=== PATIENT | female | born 1945 | race Caucasian/White ===

== ENCOUNTER 2016-10-22 17:05 | Emergency (ER) | payer OTHER ==
[2016-10-22 17:12] VITALS: BP 139/84; PULSE 79; TEMP 98.1; BMI 22.8
--- NOTE | 2016-10-22 17:24 | PDOC ---
History of Present Illness - General History Source: Patient, Old Records Exam Limitations: No Limitations <Audrey Bourgeois - Last Filed: 10/22/16 18:05> - General History Source: Patient, Spouse Exam Limitations: No Limitations - History of Present Illness Initial Comments: 10/22/16 18:16 The patient is a 71 year old female, with a significant past medical history of hypertension, who presents to the emergency department with a wound to the right upper extremity. Eight days ago, the patient reports that she was outside walking her dog when the dog saw a squirrel and took off running, tripping the patient and dragging her on the sidewalk in the process. The patient reports that she sustained an abrasion on her right upper extremity as a result. The patient subsequently washed and cleaned the wound, applied bacitracin and covered it with a band aid. Yesterday, the patient began to notice that the wound appeared to be infected so she decided to visit the ED for evaluation. The patient denies fever or chills. The patients is at the bedside. Date of the last Tetanus is unknown. Allergies: Sulfa, Penicillins. Past Surgical History: None reported. Social History: Non smoker. Reports occasional alcohol consumption. Denies drug use. PCP: Dr. Jenni Small ([facility]) <Aisha Yan - Last Filed: 10/22/16 18:16> - General Chief Complaint: Wound Stated Complaint: RT FOREARM WOUND Time Seen by Provider: 10/22/16 17:20 Past History - Past Medical History Anemia: No Asthma: No Cardiac Disorders: No CVA: No COPD: No CHF: No Dementia: No Diabetes: No GI Disorders: No Disorders: No HTN: Yes Hypercholesterolemia: No Liver Disease: No Seizures: No Thyroid Disease: No - Surgical History Abdominal Surgery: No Appendectomy: No Cardiac Surgery: No Cholecystectomy: No Lung Surgery: No Neurologic Surgery: No Orthopedic Surgery: Yes (Right Knee Bakers Cyst) - Psycho/Social/Smoking Cessation Hx Anxiety: No Suicidal Ideation: No Smoking History: Never smoked Have you smoked in the past 12 months: No Information on smoking cessation initiated: No Hx Alcohol Use: (occasional) Drug/Substance Use Hx: No Substance Use Type: Alcohol Hx Substance Use Treatment: No <Audrey Bourgeois - Last Filed: 10/22/16 18:05> <Aisha Yan - Last Filed: 10/22/16 18:16> - Past Medical History Allergies/Adverse Reactions: Allergies Allergy/AdvReac Type Severity Reaction Status Date / Time Sulfa (Sulfonamide Allergy Intermediate Verified 10/22/16 17:06 Antibiotics) Penicillins Allergy Mild Verified 10/22/16 17:06 Home Medications: Ambulatory Orders Clindamycin [Cleocin -] 300 mg PO TID #21 capsule 10/22/16 Lisinopril [Prinivil] 10 mg PO DAILY 10/22/16 Review of Systems - Review of Systems Able to Perform ROS?: Yes Comments:: 10/22/16 17:58 GENERAL/CONSTITUTIONAL: No fever or chills. No weakness. HEAD, EYES, EARS, NOSE AND THROAT: No change in vision. No ear pain or discharge. No sore throat. CARDIOVASCULAR: No chest pain or shortness of breath. RESPIRATORY: No cough, wheezing, or hemoptysis. GASTROINTESTINAL: No nausea, vomiting, diarrhea or constipation. GENITOURINARY: No dysuria, frequency, or change in urination. MUSCULOSKELETAL: No joint or muscle swelling or pain. No neck or back pain. SKIN: +Wound to the right upper extremity. No rash. NEUROLOGIC: No headache, vertigo, loss of consciousness, or change in strength/ sensation. ENDOCRINE: No increased thirst. No abnormal weight change. HEMATOLOGIC/LYMPHATIC: No anemia, easy bleeding, or history of blood clots. ALLERGIC/IMMUNOLOGIC: No hives or skin allergy. <Aisha Yan - Last Filed: 10/22/16 18:16> *Physical Exam - Vital Signs Last Vital Signs Temp Pulse Resp BP Pulse Ox 98.1 F 79 18 139/84 100 10/22/16 17:05 10/22/16 17:05 10/22/16 17:05 10/22/16 17:05 10/22/16 17:05 <Audrey Bourgeois - Last Filed: 10/22/16 18:05> - Vital Signs Last Vital Signs Temp Pulse Resp BP Pulse Ox 98.1 F 79 18 139/84 100 10/22/16 17:05 10/22/16 17:05 10/22/16 17:05 10/22/16 17:05 10/22/16 17:05 - Physical Exam Comments: 10/22/16 17:58 GENERAL: Awake, alert, and fully oriented, in no acute distress. HEAD: No signs of trauma. EYES: PERRLA, EOMI, sclera anicteric, conjunctiva clear. ENT: Auricles normal inspection, hearing grossly normal, nares patent, oropharynx clear without exudates. Moist mucosa. NECK: Normal ROM, supple, no lymphadenopathy, JVD, or masses. LUNGS: Breath sounds equal, clear to auscultation bilaterally. No wheezes, and no crackles. HEART: Regular rate and rhythm, normal S1 and S2, no murmurs, rubs or gallops. ABDOMEN: Soft, nontender, normoactive bowel sounds. No guarding, no rebound. No masses. EXTREMITIES: Normal range of motion, no edema. No clubbing or cyanosis. No cords , erythema, or tenderness. NEUROLOGICAL: Cranial nerves II through XII intact. Normal speech, normal gait. SKIN: 1.5 x 1.5 cm superficial abrasion to the extensor surface of the right forearm with surrounding soft tissue swelling and erythema. No fluctuance, mild induration. <Aisha Yan - Last Filed: 10/22/16 18:16> Medical Decision Making - Medical Decision Making 10/22/16 17:33 71-year-old female with history of hypertension presents to the emergency department with 8 day history of pain and swelling to her right forearm after a fall. The patient noticed purulent drainage from the wound with surrounding erythema today. Differential diagnosis includes but is not limited to: Underlying fracture, retained foreign body, cellulitis. Plan: 1. Plain film to rule out fracture, foreign body, [place] 2. Pain management 3. If plain films are negative will discharge home on clindamycin 300 mg 3 times a day 7 days. Follow-up with primary care physician and return to the emergency department if symptoms persist, worsen, or new symptoms arise. <Audrey Bourgeois - Last Filed: 10/22/16 18:05> *DC/Admit/Observation/Transfer - Discharge Dispostion Admit: No - Attestations Physician Attestion: 10/22/16 17:34 I, Dr. Audrey Bourgeois, attest that the scribes documentation that appears above has been prepared under my direction and personally reviewed by me in its entirety. I confirmed that the note above accurately reflects all work, treatment, procedures, and medical decision-making performed by me. <Audrey Bourgeois - Last Filed: 10/22/16 18:05> - Attestations Scribe Attestion: 10/22/16 17:29 Documentation prepared by Aisha Yan, acting as medical van driver for Audrey Bourgeois MD. <Aisha Yan - Last Filed: 10/22/16 18:16> Diagnosis at time of Disposition: Cellulitis of forearm, right - Discharge Dispostion Disposition: HOME Condition at time of disposition: Stable - Prescriptions Prescriptions: Clindamycin [Cleocin -] 300 mg PO TID #21 capsule - Referrals Referrals: Jenni Small MD [Primary Care Provider] - - Patient Instructions Printed Discharge Instructions: DI for Cellulitis -- Adult Additional Instructions: Take clindamycin 300mg-one tablet three times per day for 7 days. Follow-up with your primary care physician within one week. Return to the ED if symptoms perist, worsen or new symptoms arise.
== END 2016-10-22 18:23 | disposition home or self-care (01) ==
LOC: FER 17:05
DX: L03.113 Cellulitis of right upper limb (principal); I10 Essential (primary) hypertension; W01.0XXA Fall on same level from slipping, tripping and stumbling without subsequent striking against object, initial encounter; Y93.K1 Activity, walking an animal; Y92.9 Unspecified place or not applicable
CPT/HCPCS: 73090-TC-RT; 99283-25

== ENCOUNTER 2023-03-02 11:26 | Emergency (ER) | payer OTHER ==
[2023-03-02] MEDS ORDERED: DIPHTH,PERTUSS(ACELL),TET 0.5 ML DISP.SYRIN IM ONE ×2 (11:41→11:45)
[2023-03-02] MEDS ORDERED: ACETAMINOPHEN 500 MG TABLET (FP) PO ONE (11:41)
[2023-03-02] MEDS ORDERED: ACETAMINOPHEN 325 MG TABLET (FP) ONE (11:44)
[2023-03-02 11:52] VITALS: BP 158/84; PULSE 77; RESP 18; TEMP 97.9; BMI 22.1
== END 2023-03-02 14:00 | disposition home or self-care (01) ==
LOC: FER 11:26
PROC: 3E0234Z Introduction of Serum, Toxoid and Vaccine into Muscle, Percutaneous Approach (ICD-10-PCS; principal; 2023-03-02)
DX: S69.91XA Unspecified injury of right wrist, hand and finger(s), initial encounter (principal); S99.911A Unspecified injury of right ankle, initial encounter; S90.31XA Contusion of right foot, initial encounter; X50.1XXA Overexertion from prolonged static or awkward postures, initial encounter; W19.XXXA Unspecified fall, initial encounter; Y93.K1 Activity, walking an animal
CPT/HCPCS: 73110-TC-RT-FY; 73130-TC-RT-FY; 73590-TC-RT-FY; 73610-TC-RT-FY; 73630-TC-RT-FY; 90471; 90715; 99284-25